=== PATIENT | female | born 1975 | race Hispanic/Latino ===

== ENCOUNTER → 2018-08-13 | Outpatient (CLI) | payer BC ==
[2018-08-13 08:56] LABS: BASOPHILS # (AUTO) 0.1 (0.0-0.1); BASOPHILS % 0.7 % (0.0-1.0); EOSINOPHILS # (AUTO) 0.3 (0.0-0.4); EOSINOPHILS % 3.3 % (0.0-6.0); HEMATOCRIT 40.5 % (34.2-44.1); HEMOGLOBIN 13.6 g/dL (12.0-16.0); LYMPHOCYTES # (AUTO) 2.2 (1.0-3.2); LYMPHOCYTES % 25.4 % (18.0-39.1); MEAN CORPUSCULAR HEMOGLOBIN 30.5 pg (28-32); MEAN CORPUSCULAR HGB CONC 33.6 g/dL (31-35); MEAN CORPUSCULAR VOLUME 90.8 fL (81-99); MONOCYTES # (AUTO) 0.6 (0.2-0.8); MONOCYTES % 6.6 % (4.4-11.3); NEUTROPHILS # (AUTO) 5.4 (2.1-6.9); NEUTROPHILS % 62.7 % (38.7-80.0); PLATELET COUNT 268 x10e3/uL (140-360); RED BLOOD COUNT 4.46 x10e6/uL (3.6-5.1); RED CELL DISTRIBUTION WIDTH 13.2 % (11.7-14.4)
[2018-08-13 09:05] LABS: % IRON SATURATION 23 % (15-50); ALANINE AMINOTRANSFERASE 64 IU/L (0-55); ALBUMIN 3.6 g/dL (3.5-5.0); ALBUMIN/GLOBULIN RATIO 1.2 (0.8-2.0); ALKALINE PHOSPHATASE 112 IU/L (40-150); BLOOD UREA NITROGEN 7 mg/dL (7-26); BUN/CREATININE RATIO 9 (6-25); CALCIUM 9.1 mg/dL (8.4-10.2); CARBON DIOXIDE 23 mmol/L (22-29); CHLORIDE 104 mmol/L (98-107); CREATININE, SERUM 0.78 mg/dL (0.57-1.11); EST GLOMERULAR FILTRATION RATE > 60 ML/MIN (60-); GLUCOSE 119 mg/dL (74-118); IRON 82 ug/dL (50-170); SODIUM 138 mmol/L (136-145); TOTAL IRON BINDING CAPACITY 363 ug/dL (261-478); TRANSFERRIN 259 mg/dL (180-382)
[2018-08-13 09:14] LABS: INR 0.86; PROTHROMBIN TIME 12.5 seconds (11.9-14.5)
[2018-08-13 09:25] LABS: FERRITIN 113.17 ng/mL (4.63-204.00)
== END ==
LOC: LAB 08:13
PROVIDERS: ATTEND Internal Medicine Gastroenterology
DX: K76.0 Fatty (change of) liver, not elsewhere classified (principal); E66.01 Morbid (severe) obesity due to excess calories; Z71.3 Dietary counseling and surveillance
CPT/HCPCS: 36415; 80053; 82105; 82728; 83540; 84466; 85025; 85610; 85730; 86039; 86255; 86256; 86704; 86705; 86706; 86707; 87340; 87350; 87522

== ENCOUNTER 2020-04-23 13:59 | Emergency (ER) | payer BC ==
[~2020-04-23] VITALS: Ht 170.2 cm; Wt 99.8 kg
--- NOTE | 2020-04-23 14:59 | Emergency Department Note ---
History of Present Illnes History of Present Illness Chief Complaint: COVID PUI History of Present Illness This is a 44 year old female c cc weakness and cough, no fever,, exposed to a family member with COVID. Onset (how long ago): day(s) (1) Location: throat Quality: dull Radiation: Denies non-radiation, Denies back, Denies neck, Denies extremity, Denies abdomen, Denies periumbilical, Denies flank, Denies proximal, Denies distal, Denies other Severity: mild Duration (how long): day(s) (1) Timing of current episode: constant Progression: waxing and waning Chronicity: new Context: Denies recent illness, Denies recent surgery, Denies recent immobilization, Denies recent travel, Denies trauma/injury, Denies new medicat ions, Denies hx of DVT/PE, Denies non-compliance w/ medications, Denies other Relieving factors: none Exacerbating factors: none Associated symptoms: Reports denies other symptoms Treatments prior to arrival: none Past Medical/Family History Physician Review I have reviewed the patient's past medical and family history. Any updates have been documented here. Past Medical History Past Medical History: None Past Surgical History: None Social History Smoking Cessation: Never Smoker Family History Family history of heart diseas: No Review of Systems Review of Systems Constitutional: Reports no symptoms EENTM: Reports no symptoms Cardiovascular: Reports no symptoms Respiratory: Reports as per HPI Gastrointestinal: Reports no symptoms Genitourinary: Reports no symptoms Musculoskeletal: Reports no symptoms Integumentary: Reports no symptoms Neurological: Reports no symptoms Psychological: Reports no symptoms Endocrine: Reports no symptoms Hematological/Lymphatic: Reports no symptoms Physical Exam Related Data Allergies: Coded Allergies: Sulfamethoxazole (Verified Allergy, Mild, RASH, 11/17/10) Trimethoprim (Verified Allergy, Mild, RASH, 11/17/10) Vital signs reviewed: Yes Physical Exam CONSTITUTIONAL Constitutional: Present well-developed, Present well-nourished HENT HENT: Present normocephalic, Present atraumatic, Present oropharynx clear/moist, Present nose normal HENT L/R: Present left ext ear normal, Present right ext ear normal EYES Eyes: Reports PERRL, Reports conjunctivae normal NECK Neck: Present ROM normal PULMONARY Pulmonary: Present effort normal, Present breath sounds normal CARDIOVASCULAR Cardiovascular: Present regular rhythm, Present heart sounds normal, Present capillary refill normal, Present normal rate GASTROINTESTINAL Abdominal: Present soft, Present nontender, Present bowel sounds normal GENITOURINARY Genitourinary: Present exam deferred SKIN Skin: Present warm, Present dry MUSCULOSKELETAL Musculoskeletal: Present ROM normal NEUROLOGICAL Neurological: Present alert, Present oriented x 3, Present no gross motor or sensory deficits PSYCHOLOGICAL Psychological: Present mood/affect normal, Present judgement normal Assessment & Plan Medical Decision Making MDM pharyngitis bronchitis Reassessment Reassessment time: 14:58 Reassessment better Assessment & Plan Final Impression: (1) Acute bronchitis (2) Exposure to COVID-19 virus Depart Disposition: HOME, SELF-CARE RICKIE AMIN MD Apr 23, 2020 14:59
== END 2020-04-23 15:12 | disposition home or self-care (01) ==
LOC: FSED 13:59
DX: R05 Cough (principal); J20.9 Acute bronchitis, unspecified; Z20.828 Contact with and (suspected) exposure to other viral communicable diseases
CPT/HCPCS: 99282

== ENCOUNTER → 2024-12-03 | Day surgery (SDC) | payer BC ==
[~2024-12-03] MED LIST: LIDOCAINE HCL 2% LOCAL INJ 5 ML SDV VIAL INJ ONE; OMEPRAZOLE40 MG PO; PROPOFOL IV EMULSION 50 ML IV ONE; WEGOVY2.4 MG/0.7 SC
[2024-12-03] MEDS: LACTATED RINGER'S 1,000 ML ONE (06:30)
[2024-12-03 08:20] VITALS: BP 122/74; PULSE 82; RESP 17; O2SAT 97
== END | disposition home or self-care (01) ==
LOC: OR 06:07
PROVIDERS: ATTEND Internal Medicine Gastroenterology
DX: Z12.11 Encounter for screening for malignant neoplasm of colon (principal); K29.50 Unspecified chronic gastritis without bleeding; K31.89 Other diseases of stomach and duodenum; K21.00 Gastro-esophageal reflux disease with esophagitis, without bleeding; K57.30 Diverticulosis of large intestine without perforation or abscess without bleeding; K64.8 Other hemorrhoids; Z91.013 Allergy to seafood; Z88.1 Allergy status to other antibiotic agents; Z88.2 Allergy status to sulfonamides; Z79.85 Long-term (current) use of injectable non-insulin antidiabetic drugs; Z80.0 Family history of malignant neoplasm of digestive organs
CPT/HCPCS: 36415; 43239; 45378; 84702; 88305; 88342; J2003; J2704; J7121